=== PATIENT | female | born 1975 | race Caucasian/White ===

== ENCOUNTER 2024-04-14 17:04 | Inpatient (IN) | payer SELFPAY ==
[~2024-04-14] VITALS: Ht 160 cm; Wt 73.0 kg
[2024-04-14 17:18] VITALS: O2SAT 96
[2024-04-14] MEDS ORDERED: IOHEXOL-350 100 ML BOTTLE ONE (18:01)
[2024-04-14 18:21] LABS: BASOPHILS % 0.9 % (0.0-2.0); EOSINOPHILS % 0.4 % (0.0-5.0); HEMATOCRIT. 38.9 % (36.0-48.0); HEMOGLOBIN. 13.2 g/dL (12.0-16.0); LYMPHOCYTES % 35.2 % (20.0-50.0); MEAN CORPUSCULAR HEMOGLOBIN 32.6 pg (28.0-32.0); MEAN CORPUSCULAR HGB CONC 33.9 g/dL (31.0-37.0); MEAN CORPUSCULAR VOLUME 96.1 fL (81.0-99.0); MEAN PLATELET VOLUME 7.4 fl (7.4-10.4); MONOCYTES % 7.2 % (2.0-8.0); NEUTROPHILS % 56.3 % (40.0-76.0); PLATELET 221 x1000/uL (130-400); RED BLOOD CELL COUNT 4.05 mill/uL (4.2-5.4); RED CELL DISTRIBUTION WIDTH 12.9 % (11.6-14.6); WHITE BLOOD COUNT 5.2 x1000/uL (4.5-11.0)
[2024-04-14] MEDS: SODIUM CHLORIDE 0.9% 1,000 ML IV ONE (18:21)
[2024-04-14 18:31] LABS: CHLORIDE 103 mEq/L (98-107); POTASSIUM 3.6 mEq/L (3.5-5.1); SODIUM 139 mEq/L (136-145)
[2024-04-14 18:32] LABS: CALCIUM 8.5 mg/dL (8.7-10.4); CARBON DIOXIDE 24 mEq/L (21-32)
[2024-04-14 18:36] LABS: CREATININE 0.9 mg/dL (0.6-1.0); GLUCOSE 83 mg/dL (70-105)
[2024-04-14 18:37] LABS: ETHANOL BLOOD 290 mg/dL (<10); UREA NITROGEN BLOOD 8 mg/dL (9-23)
[2024-04-14 18:39] LABS: PHOSPHORUS 3.8 mg/dL (2.5-4.9)
[2024-04-14 18:43] LABS: TROPONIN I HIGH SENSITIVITY < 4 ng/L (3.0-34)
[2024-04-14 18:45] LABS: PROTHROMBIN TIME 10.9 sec (9.6-11.0)
[2024-04-14] MEDS ORDERED: ASPIRIN 81MG TABLET PO ONE (18:45)
[2024-04-14] MEDS ORDERED: GUAIFENESIN 200MG/10ML SUGAR FREE UDC PO PRN (21:30)
[2024-04-14] MEDS ORDERED: PANTOPRAZOLE SODIUM 40 MG/VIAL IV SCH (21:30)
[2024-04-14] MEDS ORDERED: DOCUSATE SODIUM 100MG CAPSULE PO PRN (21:30)
[2024-04-14] MEDS ORDERED: IPRATROPIUM/ALBUTEROL 0.5-3(2.5)MG/3ML NEB NEB PRN (21:30)
[2024-04-14] MEDS ORDERED: KETOROLAC 15MG/ML VIAL IV PRN (21:30)
[2024-04-14] MEDS ORDERED: CLONIDINE 0.1MG TABLET PO PRN (21:30)
[2024-04-14] MEDS ORDERED: ZOLPIDEM TARTRATE 5MG TABLET PO PRN (21:30)
[2024-04-14] MEDS ORDERED: ACETAMINOPHEN 325MG TABLET PO PRN ×2 (21:30)
[2024-04-14] MEDS ORDERED: ONDANSETRON HCL 4MG/2ML INJ IV PRN (21:30)
[2024-04-14] MEDS ORDERED: NITROGLYCERIN 0.4MG TABLET SL SL PRN (21:30)
[2024-04-14] MEDS ORDERED: MAGNESIUM/ALUMINUM HYDROXIDE/SIMETHICONE 30ML UDC PO PRN (21:30)
[2024-04-14 21:33] VITALS: TEMP 36.72516; O2SAT 95
[2024-04-14 21:34] VITALS: BP 120/75; PULSE 77; RESP 15; TEMP 98.1
[2024-04-14] MEDS ORDERED: ENOXAPARIN 40MG/0.4ML SYR SUBCUT SCH (22:00)
[2024-04-14] MEDS ORDERED: MVI, ADULT NO.1 10 ML, FOLIC ACID 1 MG, THIAMINE HCL 100 MG in SODIUM CHLORIDE 0.9% 1,0... IV SCH (23:00)
[2024-04-14 23:23] LABS: IRON 87 ug/dL (50-170)
[2024-04-14 23:24] LABS: CREATINE KINASE MB FRACTION 0.5 ng/mL (0.5-3.6); ETHANOL BLOOD 129 mg/dL (<10); TRIGLYCERIDE 245 mg/dL (0-150)
[2024-04-14 23:25] LABS: LDL CHOLESTEROL 183 mg/dL (5-100)
[2024-04-14 23:26] LABS: CHOLESTEROL 274 mg/dL (<200); CREATINE KINASE 125 IU/L (34-145); HCG SCREEN NEGATIVE; HDL CHOLESTEROL 81 mg/dL (>65); TOTAL IRON BINDING CAPACITY 336 ug/dl (250-425)
[2024-04-14 23:28] LABS: FOLIC ACID (FOLATE) SERUM 7.56 ng/mL (>5.38); VITAMIN B12 SERUM 412 pg/mL (211-911)
[2024-04-14] MEDS ORDERED: ASPIRIN 81MG TABLET PO NR (23:30)
[2024-04-14 23:38] LABS: TROPONIN I HIGH SENSITIVITY < 4 ng/L (3.0-34)
[2024-04-15] MEDS ORDERED: ASPIRIN 81MG EC TABLET PO SCH (09:00)
[2024-04-15] MEDS ORDERED: PANTOPRAZOLE SODIUM 40 MG/VIAL IV SCH (09:00)
[2024-04-15] MEDS ORDERED: ENOXAPARIN 40MG/0.4ML SYR SUBCUT SCH (09:00)
== END 2024-04-14 23:36 | disposition left against medical advice (07) | DRG 861 ==
LOC: ER 17:04 → EDBEDREQTM 19:03 → EDBEDREQ 19:03 → 5WST 22:29
PROVIDERS: ADMIT Internal Medicine; ATTEND Internal Medicine
DX: R53.1 Weakness (principal); E83.51 Hypocalcemia; R20.0 Anesthesia of skin; F10.929 Alcohol use, unspecified with intoxication, unspecified; Z53.29 Procedure and treatment not carried out because of patient's decision for other reasons; Y90.9 Presence of alcohol in blood, level not specified; Z88.8 Allergy status to other drugs, medicaments and biological substances
CPT/HCPCS: 36415; 70496; 70498; 71045; 80048; 80061; 80320; 82550; 82553; 82607; 82746; 83036; 83540; 83550; 83735; 84100; 84439; 84443; 84484; 84703; 85025; 86850; 86900; 93005; 93970; 99291; J3411; J3490; J7030; Q9967; G0480